=== PATIENT | male | born 1970 | race African-American/Black ===

== ENCOUNTER 2016-10-01 15:08 | Emergency (ER) | payer OTHER ==
[2016-10-01] MEDS ORDERED: SODIUM CHLORIDE 0.9% 1,000 ML IV STA (15:20)
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
[2016-10-01 15:47] LABS: Appearance,Urine Clear (Clear); Aty Lym Flag Moderate; Bilirubin,Urine 3+ (Negative); CH 28.7; CHCM 32.3; Glucose,Urine (UA) 1+ (Negative); HCT 48.1 % (39.0-53.0); Ketones,Urine Negative (Negative); Leukocyte Esterase,Urine Negative (Negative); MCH 29.6 pg (25.0-35.0); MCHC 33.2 g/dL (31.0-37.0); MCV 89.2 fL (80.0-100.0); Mean Platelet Volume 7.4; Nitrite,Urine Negative (Negative); Protein,Urine Trace (Negative); RDW 14.1 % (11.5-15.5); Specific Gravity,Urine 1.021 (1.001-1.035); UA Billing (MACRO vs. MICRO) CHEM; WBC 5.8 k/uL (3.8-10.6); WBC (Perox) 6.03
[2016-10-01 15:50] LABS: Alkaline Phosphatase 148 U/L (38-126); Anion Gap 12 mmol/L; Blood Urea Nitrogen 9 mg/dL (9-20); Calcium 8.8 mg/dL (8.4-10.2); Carbon Dioxide 27 mmol/L (22-30); Chloride 100 mmol/L (98-107); Glucose 121 mg/dL (74-99); Non-African American GFR(MDRD) >60 (>60 ml/min/1.73 sqM); Potassium 3.9 mmol/L (3.5-5.1); Sodium 139 mmol/L (137-145); Total Bilirubin 7.2 mg/dL (0.2-1.3); Total Protein 7.9 g/dL (6.3-8.2)
[2016-10-01 16:08] LABS: ALT 2747 U/L (21-72)
[2016-10-01 16:09] LABS: AST 1377 U/L (17-59)
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
[2016-10-01 16:25] LABS: Add Differential Manual Differential
[2016-10-01 16:30] LABS: Metamyelocytes % 2.5 %; Myelocytes % 0.5 %; Nucleated Red Blood Cells 0 /100 WBC (0-0); Polychromasia Present; Total Cells Counted 200
[2016-10-01 16:56] LABS: Hepatitis B Surface Ag Index 0.08
[2016-10-01 17:02] LABS: Hepatitis B Core IgM Index 0.07
[2016-10-01 17:03] VITALS: BP 115/70; PULSE 72; RESP 14; TEMP 98.7
[2016-10-01 17:14] LABS: Hepatitis C Virus IgG Ab Negative (Negative); Hepatitis C Virus IgG Index 0.06
--- NOTE | 2016-10-01 17:25 | US ---
EXAMINATION TYPE: US abdomen limited DATE OF EXAM: 10/01/2016 COMPARISON: NONE CLINICAL HISTORY: Pain. gross hematuria EXAM MEASUREMENTS: Liver Length: 16.2cm Gallbladder Wall: 0.4cm CBD: 0.5cm Right Kidney: 10.8 x 5.3 x 5.0cm NPO 3hrs, limited scan due to bowel gas Pancreas: limited views appear wnl Liver: wnl Gallbladder: contracted and unable to fully evaluate Evidence for sonographic Coy's sign: no IMPRESSION: No sonographic evidence of cholelithiasis or cholecystitis. Remainder the exam is limited due to overlying bowel gas.
== END 2016-10-01 17:46 | disposition home or self-care (01) ==
LOC: EC 15:08
DX: B15.9 Hepatitis A without hepatic coma (principal); R17 Unspecified jaundice; R82.2 Biliuria
CPT/HCPCS: 36415; 74176; 76705; 80053; 80074; 81003; 83690; 85025; 87086; 87491; 87591; 96360; 96361; 99284

== ENCOUNTER 2017-08-24 15:02 | Emergency (ER) | payer OTHER ==
[2017-08-24 15:10] VITALS: BP 163/89; PULSE 86; RESP 18; TEMP 98.7
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
== END 2017-08-24 16:14 | disposition home or self-care (01) ==
LOC: EC 15:02
DX: K64.8 Other hemorrhoids (principal)
CPT/HCPCS: 99282